=== PATIENT | female | born 1980 | race Caucasian/White ===

== ENCOUNTER 2021-08-26 12:30 | Outpatient (RCR) | payer BC, SELFPAY | END 2021-08-30 11:33 | disposition home or self-care (01) | PROVIDERS: Visit Provider Family Medicine | DX: M77.12 Lateral epicondylitis, left elbow (principal); Z51.89 Encounter for other specified aftercare | CPT/HCPCS: 97033; 97035; 97140 ==

== ENCOUNTER 2022-07-18 07:14 | Outpatient (CLI) | payer BC, SELFPAY | END 2022-07-18 07:15 | disposition home or self-care (01) | LOC: INJ CL 07:16 | PROVIDERS: PCP Physician Assistant Medical; Visit Provider Family Medicine | DX: M54.16 Radiculopathy, lumbar region (principal); M51.36 Other intervertebral disc degeneration, lumbar region | CPT/HCPCS: 62323; J0702; Q9966 ==

== ENCOUNTER 2023-08-19 03:42 | Emergency (ER) | payer OTHER, SELFPAY ==
[2023-08-19 03:49] VITALS: BP 128/90; PULSE 92; RESP 18; TEMP 36.6; O2SAT 97; BMI 31.8
--- NOTE | 2023-08-19 03:56 | ED_ITS ---
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 Patient had no acute injuries but does feel like the pain is worse than normal with the pain in her low back with radiation on the left leg. She has no bowel or bladder sy mptoms no fevers no chills. She has been taking leftover Percocet home with no affect. Patient does have a clark driver with her tonight. She is otherwise uninjured and has no other complaints. Related Data Home Medications ?Medication ?Instructions ?Recorded ?Confirmed No Known Home Medications 08/19/23 08/19/23 Allergies Allergy/AdvReac Type Severity Reaction Status Date / Time bupropion Allergy Verified 07/18/22 07:48 naproxen Allergy Verified 07/18/22 07:48 Penicillins Allergy Verified 07/18/22 07:48 tramadol Allergy Verified 07/18/22 07:48 wheat Allergy Verified 07/18/22 07:48 PURELL HAND MANAGER PRINTING Allergy Uncoded 07/18/22 07:48 Review of Systems Status of ROS: Reports: 10 or more systems reviewed and unremarkable except as noted in History and below Exam Narrative: Exam Narrative: EXAM GENERAL: Patient appears comfortable and well. EYES: No scleral icterus. LYMPH: No supraclavicular or cervical lymphadenopathy. SKIN: Visible skin seen during exam normal or with benign process only. EXT: No dependent lower extremity pedal edema. HEART: Regular rate and rhythm with no murmurs, rubs, or gallops. LUNGS: Clear to auscultation bilaterally with no crackles or wheezes. ABD: Soft, non tender, non distended. PSYCH: Good eye contact, speech is not pressured. Neurologic cranial nerves 2-12 grossly intact no focal defects. Const: Vital Signs, click to edit/add: Vital Signs - 24 hr 08/19/23 03:49 Temperature 97.8 F Pulse Rate [Pulse Oximeter] 92 Respiratory Rate 18 Blood Pressure [Ri ght Upper Arm] 128/90 H Pulse Oximetry 97 Oxygen Delivery Me thod Room Air Course Course ED Course: Patient is examined. Vital Signs Vital signs: Initial Vital Signs Temperature 97.8 F 08/19/23 03:49 Temperature Source Temporal Artery Scan 08/19/23 03:49 Pulse Rate 92 08/19/23 03:49 Respiratory Rate 18 08/19/23 03:49 Blood Pressure 128/90 H 08/19/23 03:49 Blood Pressure Mean 102 08/19/23 03:49 Blood Pressure Position Sitting 08/19/23 03:49 Pulse Oximetry 97 08/19/23 03:49 Oxygen Delivery Method Room Air 08/19/23 03:49 Vital Signs Temperature 97.8 F 08/19/23 03:49 Pulse Rate 92 08/19/23 03:49 Respiratory Rate 18 08/19/23 03:49 Blood Pressure 128/90 H 08/19/23 03:49 Pulse Oximetry 97 08/19/23 03:49 Oxygen Delivery Method Room Air 08/19/23 03:49 Temperature 97.8 F 08/19/23 03:49 Pulse Rate 92 08/19/23 03:49 Respiratory Rate 18 08/19/23 03:49 Blood Pressure 128/90 H 08/19/23 03:49 Pulse Oximetry 97 08/19/23 03:49 Oxygen Delivery Method Room Air 08/19/23 03:49 MDM - Back Pain/Injury MDM Narrative Medical decision making narrative: Patient is a 42-year-old woman who has acute on chronic back pain. She has a fairly extensive history and actually has Percocet at home. She has no bowel or bladder symptoms or red flag symptoms at all. She has a normal exam and reasonable vital signs. I did given her history elect to treat with short course of prednisone as well as limited number of 12 oxycodone 1-2 every 4-6 as needed. I also give her 30 mg of IM Toradol and she does have appointment with physical medicine this coming week. Differential diagnosis includes but not limited to diskitis nerve impingement spinal stenosis disc herniation sprain or strain. Discharge Plan Discharge Prescriptions: No Action No Known Home Medications Follow Up/Referrals: Leola Pablo PA-C [Primary Care Provider] -
--- OUTSIDE RECORDS SUMMARY | 2023-08-19 04:00 | XMS_ITS | Clinical Summary ---
Author Organization [facility] Address [place], [place] [address] Care Team Providers Care Cafeteria Cashier Name Role Phone GastonsixtoConcha MD Unavailable [phone] Leola Pablo Primary Care Provider Allergies Active Allergy Reactions Criticality Noted Date Comments Cephalexin Other - Describe In Comment Field 12/20/2022 Face, hand swelling Unlisted Allergen (Include Detail In Comments) Rash,Other - Describe In Comment Field 02/21/2021 purell hand home health occupational therapist Garcia skin Penicillins Dizziness 06/27/2005 IV Form and oral augmentin Tramadol Anxiety 01/27/2014 Jittery, agitated, aggressive, hot Wheat Flour Hives 10/25/2006 Bupropion Hives 06/27/2005 Medications Medication Sig Dispensed Refills Start Date End Date Status traZODone (DESYREL) 50 mg tabletIndications:In somnia, unspecified type Take 1 tablet by mouth at bedtime. 90 tablet 3 03/29/2019 Active ondansetron (ZOFRAN ODT) 4 mg disintegrating tabletIndications:Na usea Place 1 Tablet (4 mg) on the tongue every 8 hours if needed for Nausea/Vomiting. 30 tablet. 12/28/2020 Active cyclobenzaprine (FLEXERIL) 10 mg tabletIndications:Tr igger point Take 1 Tablet (10 mg) by mouth 2 times daily if needed for Muscle Spasm. 30 Tablet 06/28/2022 Active cxcdwkgt-qfhvnloxc-t ydrocortisone (CORTISPORIN OTIC) otic suspensionIndication s:Otitis externa, unspecified chronicity, unspecified laterality, unspecified type Place 3 Drops into both ears three times daily. 10 mL 06/28/2022 Active oxyCODONE-acetaminop hen (Percocet) 5-325 mg per tabletIndications:Ruth mbar disc disease,Lumbar radiculopathy Take 1 Tablet by mouth every 6 hours if needed for Pain. Max acetaminophen dose: 4000mg in 24 hrs. 18 Tablet 07/06/2022 Active mupirocin (Bactroban) ointmentIndications: Impetigo Apply topically to affected area(s) 3 times daily for 5 days. 22 g 12/19/2022 Active hydroCHLOROthiazide 25 mg tabletIndications:Bi lateral edema of lower extremity TAKE ONE OR TWO TABLETS BY MOUTH DAILY 180 Tablet 07/17/2023 Active Active Problems Problem Noted Date Diagnosed Date H/O total hysterectomy 06/15/2021 Pain medication agreement 12/21/2014 Spondylolisthesis of lumbosacral region 05/29/19 15 DDD (degenerative disc disease), lumbar 05/29/19 15 Lumbar foraminal stenosis 05/28/2014 URTICARIA NOS 04/30/2000 DISORDER, TOBACCO USE 11/29/1999 LUMBAGO 07/19/1999 Resolved Problems Problem Noted Date Diagnosed Date Resolved Date Peroneal tenosynovitis 09/20/201201/28 Normal delivery 06/07/2007 01/28/2014 Supervision of other normal 05/03/2007 06/07/2007 Placenta previa without hemo rrhage, antepartum 02/04/2007 06/07/2007 Obesity, unspecified 10/25/2006 008 EXAMINATION, ROUTINE MEDICAL 11/29/1999 10/25/2006 ABSENCE, MENSTRUATION 11/29/19992006 Encounters Date Type Department Care Team Description 07/16/2023 Refill [facility] [address] [place] [address] Leola Pablo PA Refill Request (Hydrochlorothiazide) from Last 3 Months Immunizations Name Administration Dates Next Due HepA-HepB (Twinrix) 08/22/2011,06/23/2011 Hepatitis B (Adult) 09/10/2012 Influenza, IIV3 (Age >=3 years) 12/17/2013,11/25 Influenza, IIV4 11/15/2020, 0,11/14/2017,12/07/2016, 11/22/2015,11/25/2014 MMR 11/21/2013,10/22/2013 Td (Age >=7 Years) 03/11/2004 Tdap 08/22/2011 Family History Medical History Relation Name Comments Diabetes Mother diet controlled Genetic Other Father - has HT N. ~GF has CAD.~GM, Aunt, and cousin have breast cancer. Heart Disease Sister cardiac arrhyt hmia Relation Name Status Comments Mother Other Sister Social History Tobacco Use Types Packs/Day Years Used Date Smoking Tobacco: Every Day Cigarettes 0.5 15 Smokeless Tobacco: Never Tobacco Cessation:Ready to Q uit: Yes; Counseling Given: Yes Comments:quitting, down to 2-3 per day Alcohol Use Standard Drinks/Week Comments No 0 (1 standard drink = 0.6 oz pur e alcohol) Alcoholic Drinks/day: 0 PHQ-2 Answer Date Recorded PHQ-2 Score 3 04/01/2019 Social Connections Answer Date Recorded Frequency of Communication with Friends and Fami ly 0 12/19/2022 Financial Resource Strain Answer Date R ecorded Difficulty of Paying Living Expenses 3 12/19/2022 Difficulty of Paying Living Expenses Not on file 12/19/2022 Food Insecurity Answer Date Recorded Worried About Running Out of Food in the Last Ye ar 1 12/19/2022 Transportation Needs Answer Date Record ed Lack of Transportation (Medical) 1 12/19/2022 Housing Stability Answer Date Recorded Unable to Pay for Housing in the Last Year 1 12/19/2022 Sex and Gender Information Value Date Recorded Sex Assigned at Not on file Gender Identity Not on file Sexual Orientation Not on file Obstetrics History Para Term AB IAB SAB Ectopic Multiple Livin g Live Births 6 4 4 1 1 4 4 Date Outcome GA Total Labor Labor/2nd/3rd Weight Sex Type Anes PTL Latasha A1 A5 Name Clin Comments:System Genera barbara. Please review and update details. SAB 997 Term 42w 0d Vag Living 002 Term 41w 0d Vag Living 005 Term 40w 0d Vag Living 008 Term 39w 0d Vag Living Last Filed Vital Signs Vital Sign Reading Time Taken Comments Blood Pressure 93/70 12/19/2022 7:39 AM CDT Pulse 92 12/19/2022 7:39 AM CDT Temperature 36.7 ??C (98.1 ??F) 12/19/2022 7:39 AM CD T Respiratory Rate 18 06/08/2007 8:20 AM CDT Oxygen Saturation 99% 12/19/2022 7:39 AM CDT Inhaled Oxygen Concentration - - Weight 100.7 kg (222 lb) 12/19/2022 7:39 AM CDT Height 160 cm (5' 3) 02/21/2021 10:43 AM MONOMER PURIFICATION OPERATOR Body Mass Index 39.33 02/21/2021 10:43 AM MONOMER PURIFICATION OPERATOR Plan of Treatment Health Maintenance Due Date Last Done Comments Pneumococcal series for age 6-64 (1 of 2 - PCV) 1984 Hepatitis C screening for ag e 18-79 1996 Depression screening for age 12+ 04/01/2020 04/01/19 20, 07/21/2016 Tetanus booster 08/21/2021 08/22/2011, 03/11/2004 BMI (ht and wt on same day) for age 18+ 02/21/2022 02/21/2021, 04/25/2019, 04/09/2019, Additional history exists COVID-19 vaccine series ( season) 2022 Influenza for age 9-49 10/21/2023 , 12/18/2019, 11/14/2017, Additional history exists HIV for age 15-65 Completed 08/26/2009, 11/26/2006 Tdap Completed 08/22/2011 Procedures Procedure Name Priority Date/Time Associated Diagnosis Comments ANTI HIV 1/2 Routine 08/26/2009 6:59 PM CDT Supervision of other normal from Last 3 Months or Most Recently Relevant to Health Maintenance Results * HIV (08/26/2009 6:59 PM CDT) ANTI HIV 1/2 Non-reacti ve [facility] Blood specimen (specimen) BLOOD SPECIMEN / Unknown 08/26/2009 6:59 PM CDT 08/26/2009 6:45 PM CDT Móinca López NP SEND OUTS [facility] INTERNAL ZIP [phone] [address] from Last 3 Months or Most Recently Relevant to Health Maintenance Advance Directives * Full Code (Latest Code Status on File) Date Activated Date Inactivated Comments 06/07/2007 4:39 AM 06/08/2007 2:32 PM * Full Code Date Activated Date Inactivated Comments 06/06/2007 9:00 AM 06/07/2007 4:39 AM Care Teams Cafeteria Cashier Relationship Specialty Start Date End Date Leola Pablo PA [address] [place] [id number] PCP - General Physician Hand Packer/Packager 04/01/19 Concha Fermin MD [address] [place] [address] [employer]DLE SCHO[employer] TUTOR Obstetrics and Gynecology 01/02/12
--- OUTSIDE RECORDS SUMMARY | 2023-08-19 04:00 | XMS_ITS | Continuity of Care Document ---
Author Organization [facility] Address [address] [place] [address] Phone Care Team Providers Care Feed Mixer Helper Name Role Phone Dez Orantes MD Unavailable Unavailable Allergies, Adverse Reactions, Alerts Substance Reaction Status Criticality Penicillins Active No Information Medications Medication Instructions Dosage Effective Dates (start - stop) Status Comments EXCEDRIN MIGRAINE (unknown strength) Not Available - Active PERCOCET (unknown strength) Not Available - Active TRAZODONE HCL (unknown strength) Not Available - Active HYDROCHLOROTHIAZIDE (unknown strength) Not Available - Active Procedures Procedure Date Office/Outpatient Visit,[facility] 2015 Advance Directives Directive Yes / No Effective Date File Name No Information Encounters Encounter Description Practice Location Reason(s) For Visit Diagnoses Date Provider Providers Copied on Encounter Office/Outpati ent Visit,[facility] , [address], [place], [place], [id number], [place] tel:[phone] [facility] - Piper Spondylolis thesis, lumbar region Lamberto Larson [facility], [address], [place], [place], [id number], [place]. tel:[phone] Referring Provider: Leola Pablo [facility], [place], [address]. tel:[phone] Family History Family Member Type Diagnosis Age At Onset Problem (finding) Problem (finding) Payers Payer name Insurance type Covered alliance party ID Authoriza tion(s) No Information Social History Type Description Quantity Date Captured Comments Alcohol Use Details Caffeine Use Details Tobacco Use Status Smoking Status Current every day smoker Non-Smoking Tobacco Use Details : No Details Available
cigarett es: Years Used 20 : No Details Available cigarettes: No Details Available Sex Female Vital Signs Date / Time: Height Weight BMI Pulse Rate Blood Pressure Temperature Respiratory Rate Body Surface Area Head Circumference Head Circ. Percentile Wt./Franck. Percentile BMI percentile Pulse Ox Inhaled Ox 9:52 AM 63.50 in 104.326 kg (230.00 lbs) 40.1 0 kg/m eter (2) 76 /min 128/79 mm[Hg] Chief Complaint And Reason For Visit No Information Reason For Referral Reason For Referral No Information History Of Present Illness Encounter Date Complaint History Of Prese nt Illness No Information Functional Status Date Functional Assessmen t No Information Instructions Date Instruction Additional Infor mation No Information Assessments Type Assessment Date assessment Spondylolisthesis, lumbar region Patient Care Teams Name Effective Dates (start - stop) Status Members No Information
--- OUTSIDE RECORDS SUMMARY | 2023-08-19 04:00 | XMS_ITS | Continuity of Care Document ---
Author Organization [facility] Address [address] [place] [address] Phone Care Team Providers Care Fence Post Driver Name Role Phone Dez Orantes MD Unavailable Unavailable Allergies, Adverse Reactions, Alerts Substance Reaction Status Criticality Penicillins Active No Information Medications Medication Instructions Dosage Effective Dates (start - stop) Status Comments HYDROCHLOROTHIAZIDE (unknown strength) Not Available - Active TRAZODONE HCL (unknown strength) Not Available - Active PERCOCET (unknown strength) Not Available - Active EXCEDRIN MIGRAINE (unknown strength) Not Available - Active Procedures Procedure Date Office/Outpatient Visit,[facility] 2015 Advance Directives Directive Yes / No Effective Date File Name No Information Encounters Encounter Description Practice Location Reason(s) For Visit Diagnoses Date Provider Providers Copied on Encounter Office/Outpati ent Visit,[facility], [facility] , [address], [place], [place], [id number], [place] tel:[phone] [facility] - Piper Spondylolis thesis, lumbar region Lamberto Larson [facility], [address], [place], [place], [id number], [place]. tel:[phone] Referring Provider: Leola Pablo [facility], [place], [address]. tel:[phone] Family History Family Member Type Diagnosis Age At Onset Problem (finding) Problem (finding) Payers Payer name Insurance type Covered green party ID Authoriza tion(s) No Information Social [...]
--- OUTSIDE RECORDS SUMMARY | 2023-08-19 04:00 | XMS_ITS | Patient Health Record ---
Author Organization [facility] Address [address] [place] [address] Care Team Providers Care Profiling Machine Set Up Operator Tool Name Role Phone Nikolai Lawton [phone] RESULTS Component Value Reference Range Notes Glucose Reviewed date:11/30/2022 03:16:17 PM Interpretation: Performing Lab: Notes/Report: Glucose 98 70 - 99 mg/dL Lipid Panel Reviewed date:11/30/2022 03:15:51 PM Interpretation: Performing Lab: Notes/Report: Cholesterol, Total 207 <200 - mg/dL HDL Cholesterol 45 LDL Cholesterol Calc 133 <100 - mg/dL Triglycerides 147 <150 - mg/dL nHDLc 163 <130 - mg/dL TC/H 4.6 2.8 - 6.6 VLDL Cholesterol John Hemoglobin A1c Reviewed date:11/30/2022 03:56:23 PM Interpretation: Performing Lab: Notes/Report: A1c Hemoglobin 5.1 4.0 - 7.0 % REASON FOR REFERRAL No Information IMMUNIZATIONS Vaccine Route Administration Date Status Comme nts Influenza quadrivalent (FLUARIX 6mos and older) IM Intramuscular 11/15/2020 Administered Influenza quadrivalent (FLUARIX 6mos and older) IM Intramuscular 11/30/2022 Administered VITAL SIGNS Blood pressure diastolic 90 mm Hg 11/30/2022 Blood pressure systolic 124 mm Hg 11/30/2022 Encounters Encounter Location Date Provider Diagnosis [address] [address] 11/30/2022 Nikolai Lawton Encounter for examination for insurance purposes Z02.6 and Need for influenza vaccination Z23 ASSESSMENTS Encounter Date Diagnosis Assessment Notes Treatment Notes Treatment Clinical Notes 11/30/2022 Encounter for examination for insurance purposes (ICD-10 - Z02.6) 11/30/2022 Need for influenza vaccination (ICD-10 - Z23) PLAN OF TREATMENT No Information Insurance Providers Payer Name Payer Address Payer Phone Subscriber Number Group Number Insured Name Patient Relationship to Insured Coverage Start Date Coverage End Date BCBS BlueLink [address] [address] [place]ace [address] [id number] Harini Nunn Self - patient is the insured
[2023-08-19] MEDS: KETOROLAC 30 MG/ML inj IM (04:09)
[2023-08-19] MEDS: ONDANSETRON ODT 4 MG TAB PO (04:18)
[2023-08-19 04:47] VITALS: BP 131/91; PULSE 99; RESP 22; O2SAT 100
== END 2023-08-19 05:30 | disposition home or self-care (01) ==
PROVIDERS: Emergency Provider Internal Medicine; PCP Physician Assistant Medical
DX: M54.9 Dorsalgia, unspecified (principal); G89.29 Other chronic pain
CPT/HCPCS: 96372; 99283; 99284; A9270; J1885

== ENCOUNTER 2023-12-14 08:19 | Outpatient (CLI) | payer BC, SELFPAY ==
--- OUTSIDE RECORDS SUMMARY | 2023-12-14 08:21 | XMS_ITS | Continuity of Care Document ---
Author Organization [facility] Address [address] [place] [address] Phone Care Team Providers Care Crop And Soil Technician Name Role Phone Dez Orantes MD Unavailable [...] Available - Active Procedures Procedure Date Office/Outpatient Visit,[facility] 2015 Advance Directives Directive Yes / No Effective Date File Name No Information Encounters Encounter Description Practice Location Reason(s) For Visit Diagnoses Date Provider Providers Copied on Encounter Office/Outpati ent Visit,[facility], [facility] , [address], [place], [place], [id number], [place] tel:[phone] [facility] - Piper Spondylolis thesis, lumbar region Lamberto Larson [facility], [address], [place], [place], [id number], [place]. tel:[phone] Referring Provider: Leola Pablo [facility], [place], [address]. tel:[phone] Family History Family Member Type Diagnosis Age [...]
--- OUTSIDE RECORDS SUMMARY | 2023-12-14 08:22 | XMS_ITS | Patient Health Record ---
Author Organization [facility] Address [address] [place] [address] Support Name Relationship Address Phone Harini Nunn Guarantor Unknown [phone] REASON FOR REFERRAL No Information IMMUNIZATIONS Vaccine Route Administration Date Status Comme nts Influenza quadrivalent (FLUARIX 6mos and older) IM Intramuscular 11/15/2020 Administered Influenza quadrivalent (FLUARIX 6mos and older) IM Intramuscular 11/30/2022 Administered PLAN OF TREATMENT No Information Insurance Providers Payer Name Payer Address Payer Phone Subscriber Number Group Number Insured Name Patient Relationship to Insured Coverage Start Date Coverage End Date BCBS BlueLink [address] [address] [place] [address] [id number] Harini Nunn Self - patient is the insured
--- OUTSIDE RECORDS SUMMARY | 2023-12-14 08:22 | XMS_ITS | Clinical Summary ---
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 30 tablet. 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 30 Tablet 1 11/05/2023 Active Active Problems Problem Noted Date Diagnosed [...] Encounters Date Type Department Care Team Description 12/13/2023 Travel 11/12/2023 11:20 AM CDT Office Visit [facility] [address] [place] [address] Gianluca Lemos MD Musculoskeletal Problem (Follow up back pain epidural steroid injection last on 07/18/22.) 11/12/2023 Travel 11/05/2023 7:50 AM CDT Office Visit [facility] [address] [place] [address] Leola Pablo PA Shoulder Pain/problem (Ongoing L shoulder pain - been years, will randomly act up on her, you had done trigger point inj before) 11/05/2023 Telephone [facility] [address] [place] [address] Gianluca Lemos MD Back Pain 11/05/2023 Travel from Last 3 Months Immunizations Name Administration [...] file 12/19/2022 Food Insecurity Answer Date Recorded Do you worry your food will run out before you are able to buy more? 1 12/19/2022 Transportation Needs Answer Date Record ed Lack of Transportation (Medical) 1 12/19/2022 Housing Stability Answer Date Recorded What is your housing situation today? 1 12/19/2022 Sex and Gender Information Value [...] Sign Reading Time Taken Comments Blood Pressure 101/70 11/12/2023 11:25 AM CDT Pulse 83 11/12/2023 11:25 AM CDT Temperature 36.7 ??C (98.1 ??F) 11/12/2023 11:25 AM C DT Respiratory Rate 18 06/08/2007 8:20 AM CDT Oxygen Saturation 100% 11/12/2023 11:25 AM CDT Inhaled Oxygen Concentration - - Weight 88.9 kg (196 lb) 11/05/2023 7:52 AM CDT Height 160 cm (5' 3) 02/21/2021 10:43 AM TECHNICAL SUPPORT ENGINEER Body Mass Index 34.72 02/21/2021 10:43 AM TECHNICAL SUPPORT ENGINEER Plan of Treatment Upcoming Encounters Date Type Department Care Team (Late st Contact Info) Description 12/14/2023 9:00 AM CDT Office Visit [facility] at [facility] [address] [place] [phone] Gianluca Lemos MD [address] [place] [address] Arrived 01/28/2024 8:40 AM TECHNICAL SUPPORT ENGINEER Office Visit [facility] [address] [place] [address] Gianluca Lemos MD [address] [place] [address] Health Maintenance Due Date Last Done Comments Pneumococcal series for age 6-64 (1 of 2 - PCV) 1984 Hepatitis C screening for ag e 18-79 1996 Depression screening for age 12+ 04/01/2020 04/01/19 20, 07/21/2016 Tetanus booster 08/21/2021 08/22/2011, 03/11/2004 BMI (ht and wt on same day) for age 18+ 02/21/2022 02/21/2021, 04/25/2019, 04/09/2019, Additional history exists Colonoscopy through age 75 09/22/2023 Lipids for age 45-75 09/22/2023 12/30/2003 Mammogram for age 45-75 09/22/2023 COVID-19 vaccine series ( season) 2023 03/10/2021, 03/24/2020 Influenza for age 9-49 10/21/2023 , 12/18/2019, 11/14/2017, Additional history exists HIV for age 15-65 Completed 08/26/2009, 11/26/2006 Tdap Completed 08/22/2011 Procedures Procedure Name Priority Date/Time Associated Diagnosis Comments AMB EPIDURAL STEROID INJECTION Routine 12/14/2023 8:00 AM CDT Lumbar disc disease Lumbar radiculopathy Spondylolisthesis of lumbosacral region ANTI HIV 1/2 Routine 08/26/2009 6:59 PM CDT Supervision of other normal LIPID PANEL Timed 12/30/2003 12:10 PM TECHNICAL SUPPORT ENGINEER from Last 3 Months or Most Recently Relevant to Health Maintenance Results * HIV (08/26/2009 6:59 PM CDT) ANTI HIV 1/2 Non-reacti ve [facility] Blood specimen (specimen) BLOOD SPECIMEN / Unknown 08/26/2009 6:59 PM CDT 08/26/2009 6:45 PM CDT Mónica López LEAD HANDLER SEND OUTS [facility] [place] ZIP [address] [address] * (ABNORMAL) LIPID PANEL (12/30/2003 12:10 PM TECHNICAL SUPPORT ENGINEER) CHOLESTEROL,TOTAL 208(H) 110 - 199 mg/dL [facility] TRIGLYCERIDES 122 40 - 149 mg/dL [facility] HDL CHOLESTEROL 38(L) 41 - 95 mg/dL [facility] CHOL/HDL RATIO 5.47(H) <4.51 [facility] LDL CHOLESTEROL 146(H) 60 - 130 mg/dL [facility] PATIENT STATUS Fasting [facility] 12/30/2003 12:1 0 PM TECHNICAL SUPPORT ENGINEER 12/30/2003 7:27 PM TECHNICAL SUPPORT ENGINEER Danna Salcido MD CHEMISTRY [facility] INTERNAL ZIP [id number] [address] from Last 3 Months or Most Recently Relevant to Health Maintenance Advance Directives * Full Code (Latest Code Status on File) Date Activated Date Inactivated Comments 06/07/2007 4:39 AM 06/08/2007 2:32 PM * Full Code Date Activated Date Inactivated Comments 06/06/2007 9:00 AM 06/07/2007 4:39 AM Care Teams Assembly Line Robot Operator Relationship Specialty Start Date End Date Leola Pablo PA [facility] [place] [place] [address] PCP - General Physician Oil Dipper 04/01/19 Concha Fermin MD [address] [place] [address] LICENSING SPECIALIST Obstetrics and Gynecology 01/02/12
== END 2023-12-14 08:20 | disposition home or self-care (01) ==
LOC: INJ CL 08:20
PROVIDERS: PCP Physician Assistant Medical; Visit Provider Family Medicine
DX: M54.16 Radiculopathy, lumbar region (principal); M51.369 Other intervertebral disc degeneration, lumbar region without mention of lumbar back pain or lower extremity pain
CPT/HCPCS: 62323; J0702; Q9966

== ENCOUNTER 2025-01-27 14:44 | Emergency (ER) | payer BC, SELFPAY ==
[2025-01-27] VITALS (19 sets, daily range): BP systolic 98–124; BP diastolic 52–84; PULSE 68–94; RESP 16–20; TEMP 37.5; O2SAT 95–100
--- NOTE | 2025-01-27 16:00 | CRLHL7_ITS ---
For Patients: As a result of the Century Cures Act, medical imaging exams and procedure reports are released immediately into your electronic medical record. You may view this report before your referring provider. If you have questions, please contact your health care provider. INDICATION: Head trauma. TECHNIQUE: CT head without contrast. COMPARISON: None. FINDINGS: CSF spaces: Within normal limits for age. Brain parenchyma and extra-axial spaces: The coleman-white differentiation is normal. No sign of mass, hemorrhage, or midline shift. No extra-axial fluid collection. Skull base and calvarium: The visualized paranasal sinuses and mastoid air cells demonstrate no acute or significant findings. The visualized orbits are grossly unremarkable. No skull fractures. IMPRESSION: No acute intracranial abnormality on this noncontrast study. Please note that all CT scans at this facility use dose modulation, iterative reconstruction, and/or weight-based dosing when appropriate to reduce radiation dose to as low as reasonably achievable. Dictated by Michael Courtney MD @ 01/27/2025 4:20:19 PM (Electronically Signed)
--- NOTE | 2025-01-27 16:00 | CRLHL7_ITS ---
For Patients: As a result of the Cures Act, medical imaging exams and procedure reports are released immediately into your electronic medical record. You may view this report before your referring provider. If you have questions, please contact your health care provider. INDICATION: Facial injury. TECHNIQUE: CT maxillofacial without contrast. COMPARISON: None. FINDINGS: Facial bones: No fractures or bone lesions. Specifically the nasal bones, temporomandibular joints, maxilla and mandible appear intact. Orbits and globes: Unremarkable. Globes are intact. No sign of intraorbital hemorrhage or emphysema. Sinuses: Mild left maxillary sinus mucoperiosteal thickening. Otherwise, no acute or significant findings. Soft tissues: Left cheek soft tissue edema. IMPRESSION: Left cheek soft tissue edema. No acute maxillofacial fractures. Please note that all CT scans at this facility use dose modulation, iterative reconstruction, and/or weight-based dosing when appropriate to reduce radiation dose to as low as reasonably achievable. Dictated by Michael Courtney MD @ 01/27/2025 4:24:07 PM (Electronically Signed)
--- NOTE | 2025-01-27 16:18 | ED.GENADULT ---
HPI - General Adult General Chief complaint: Fall/Minor Trauma Stated complaint: Fainted and hit face @10:30 am Time Seen by Provider: 01/27/25 16:00 History of Present Illness HPI narrative: This is a pleasant 44-year-old female presenting to the ER today by private car for evaluation of head and facial injuries after a syncopal event. Of note, during the triage process nurses did activate a trauma team activation. 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 ?She got up early this morning after her son called her. ?She has a history that sometimes when she gets up to abruptly out of bed she gets lightheaded and orthostatic but has never fainted before. ?She got up out of bed this morning and within about a few seconds she was feeling dizzy and lightheaded. ?She did not have any palpitations, chest pain, headache, or any other antecedent symptoms. ?She fell to the floor. ?She is not exactly sure what happened but she woke up on the floor couple of minutes later. ?Ever since then she has had a frontal headache and also pain in her left cheek. ?She went back to bed and when she woke up later she was having increasing pain and swelling in her left cheek. ?She actually thought she might have a dental infection so she went to her dentist later this morning and was cleared by her dentist and referred to the ER. She took some Excedrin for her headache and it is now very mild. ?She has not wanted further medications for. ?Her vision is normal. ?She is not nauseous or vomiting. ?No associated neck pain. ?No numbness or weakness in her arms or legs. ?She is not anticoagulated. ?No other injury from the fall. ?No chest pain. ?No rib pain. ?No back pain. ?No pain in her arms or legs. She is having pain with swelling and bruising on her left cheek and pain with opening and closing her mouth on that left side. ?Also a frontal headache. Related Data Home Medications ?Medication ?Instructions ?Recorded ?Confirmed No Known Home Medications 08/19/23 01/27/25 Allergies Allergy/AdvReac Type Severity Reaction Status Date / Time bupropion Allergy Verified 01/27/25 15:44 naproxen Allergy Verified 01/27/25 15:44 Penicillins Allergy Verified 01/27/25 15:44 tramadol Allergy Verified 01/27/25 15:44 wheat Allergy Verified 01/27/25 15:44 ketorolac (From Toradol) AdvReac Verified 01/27/25 15:44 PURELL HAND FINE [employer]S MODEL Allergy Uncoded 07/18/22 07:48 [facility] Social History Smoking Status: Current every day smoker Non-prescribed substance use: denies use Exam Narrative: Exam Narrative: Constitutional: Appears well-developed and well-nourished. Alert. Conversant. Non toxic. HENT: Head: No depressed skull fracture, Raccoon Eyes, Rider's sign, or hemotympanum. Face normal. TMs normal. She does have ecchymosis and swelling over the left cheek and zygomatic arch. No obvious bony deformity or crepitus. No exophthalmos or enophthalmos. No dental malocclusion. No dental fractures. No intraoral bleeding. Tongue normal. Nose: Nose normal. No epistaxis or signs of trauma. Mouth/Throat: Oral mucosa is clear and moist. no trismus. Pharynx normal. Tonsils symmetric. No tonsillar enlargement, erythema, or exudate. Eyes: Conjunctivae normal. EOM normal. Pupils equal, round, and reactive to light. No scleral icterus. Neck: Normal range of motion. Neck supple. No tracheal deviation present. No posterior midline tenderness. Cardiovascular: Normal rate, regular rhythm. No gallop. No friction rub. No murmur heard. Symmetric radial artery pulses Pulmonary/Chest: Effort normal. No stridor. No respiratory distress. No wheezes. No rales. No rhonchi . No tenderness. Abdominal: Soft. Bowel sounds normal. No distension. No mass. No tenderness. No rebound. No guarding. Musculoskeletal: No rib cage tenderness. Pelvis is stable. No T or L-spine tenderness. RUE: Normal range of motion. No tenderness. No deformity LUE: Normal range of motion. No tenderness. No deformity RLE: Normal range of motion. No edema. No tenderness. No deformity LLE: Normal range of motion. No edema. No tenderness. No deformity Neurological: Constitutional: Appears well-developed and well-nourished. Alert. Conversant. Non toxic. HENT: Head: Atraumatic. Nose: Nose normal. Mouth/Throat: Oral mucosa is clear and moist. no trismus. Pharynx normal. Tonsils symmetric. No tonsillar enlargement, erythema, or exudate. Eyes: Conjunctivae normal. EOM normal. Pupils equal, round, and reactive to light. No scleral icterus. Neck: Normal range of motion. Neck supple. No tracheal deviation present. Cardiovascular: Normal rate, regular rhythm. No gallop. No friction rub. No murmur heard. Symmetric radial artery pulses Pulmonary/Chest: Effort normal. No stridor. No respiratory distress. No wheezes. No rales. No rhonchi . No tenderness. Abdominal: Soft. Bowel sounds normal. No distension. No mass. No tenderness. No rebound. No guarding. Musculoskeletal: RUE: Normal range of motion. No tenderness. No deformity LUE: Normal range of motion. No tenderness. No deformity RLE: Normal range of motion. No edema. No tenderness. No deformity LLE: Normal range of motion. No edema. No tenderness. No deformity Lymph: No cervical adenopathy. Neurological: Alert and oriented to person, place, and time. Normal strength. CN II-VII intact. No sensory deficit. GCS eye subscore is 4. GCS verbal subscore is 5. GCS motor subscore is 6. Normal coordination Skin: Skin is warm and dry. No rash noted. No pallor. Normal capillary refill. Psychiatric: Normal mood. Normal affect. She politely declines any medication for headache. She says she took Excedrin and it is already getting quite a bit better. Const: Vital Signs, click to edit/add: Vital Signs - 24 hr 01/27/25 15:37 01/27/25 16:20 01/27/25 16:21 Temperature 99.5 F Pulse Rate 78 79 Pulse Rate [Right Pulse Oximeter] 94 Respiratory Rate 18 20 Blood Pressure 109/84 Blood Pressure [Le ft Upper Arm] 124/81 Pulse Oximetry 100 99 100 Oxygen Delivery Me thod Room Air 01/27/25 16:22 01/27/25 16:30 01/27/25 16:32 Temperature Pulse Rate 77 84 77 Pulse Rate [Right Pulse Oximeter] Respiratory Rate Blood Pressure 101/61 Blood Pressure [Le ft Upper Arm] Pulse Oximetry 100 99 100 Oxygen Delivery Me thod 01/27/25 16:42 01/27/25 16:45 01/27/25 16:52 Temperature Pulse Rate 72 72 71 Pulse Rate [Right Pulse Oximeter] Respiratory Rate 17 Blood Pressure 109/60 111/64 Blood Pressure [Le ft Upper Arm] Pulse Oximetry 100 100 99 Oxygen Delivery Me thod 01/27/25 17:00 01/27/25 17:01 01/27/25 17:12 Temperature Pulse Rate 72 72 70 Pulse Rate [Right Pulse Oximeter] Respiratory Rate 16 16 Blood Pressure 110/61 106/68 Blood Pressure [Le ft Upper Arm] Pulse Oximetry 95 100 100 Oxygen Delivery Me thod 01/27/25 17:15 01/27/25 17:21 01/27/25 17:30 Temperature Pulse Rate 70 69 68 Pulse Rate [Right Pulse Oximeter] Respiratory Rate 17 16 Blood Pressure 107/69 Blood Pressure [Le ft Upper Arm] Pulse Oximetry 100 99 100 Oxygen Delivery Me thod 01/27/25 17:32 01/27/25 17:42 01/27/25 17:45 Temperature Pulse Rate 68 70 69 Pulse Rate [Right Pulse Oximeter] Respiratory Rate 18 18 16 Blood Pressure 105/60 98/52 L Blood Pressure [Le ft Upper Arm] Pulse Oximetry 100 100 99 Oxygen Delivery Me thod 01/27/25 17:52 Temperature Pulse Rate 69 Pulse Rate [Right Pulse Oximeter] Respiratory Rate Blood Pressure 105/76 Blood Pressure [Le ft Upper Arm] Pulse Oximetry 100 Oxygen Delivery Me thod Course Vital Signs Vital signs: Initial Vital Signs Temperature 99.5 F 01/27/25 15:37 Temperature Source Temporal Artery Scan 01/27/25 15:37 Pulse Rate 94 01/27/25 15:37 Pulse Rhythm Regular 01/27/25 15:37 Pulse Strength 3+ Normal 01/27/25 15:37 Respiratory Rate 18 01/27/25 15:37 Blood Pressure 124/81 01/27/25 15:37 Blood Pressure Mean 95 01/27/25 15:37 Blood Pressure Position Sitting 01/27/25 15:37 Pulse Oximetry 100 01/27/25 15:37 Oxygen Delivery Method Room Air 01/27/25 15:37 Vital Signs Temperature 99.5 F 01/27/25 15:37 Pulse Rate 94 01/27/25 15:37 Respiratory Rate 18 01/27/25 15:37 Blood Pressure 124/81 01/27/25 15:37 Pulse Oximetry 100 01/27/25 15:37 Oxygen Delivery Method Room Air 01/27/25 15:37 Temperature 99.5 F 01/27/25 15:37 Pulse Rate 69 01/27/25 17:52 Respiratory Rate 16 01/27/25 17:45 Blood Pressure 105/76 01/27/25 17:52 Pulse Oximetry 100 01/27/25 17:52 Oxygen Delivery Method Room Air 01/27/25 15:37 Medical Decision Making MDM Narrative Medical decision making narrative: This patient presents for evaluation of a syncopal event that occurred this morning if she abruptly jumped out of bed and shorted within a couple of seconds of standing up. She has a history of getting lightheaded when getting out of bed too quickly. Clinical history would suggest that this was probably an orthostatic hypotensive event.. A broad differential was considered. History provided suggests a benign cause of syncope. No murmurs . Initial ECG shows normal sinus rhythm and no dysrhythmogenic abnormality such as WPW, prolonged QT, Brugada syndrome, and no ischemia. No symptoms/findings concerning for cardiac ischemia or ACS . No headache or other neurologic symptoms to suggest subarachnoid , stroke . No reported seizure-like activity or postictal phase. ekg monitor while the patient here in the ER showed no dysrhythmia or ectopy. A broad differential diagnosis was considered including SVT, Atrial fibrillation, ventricular arrhythmia, thyroid disease, acute electrolyte abnormality, drugs/medications, medication side effect, anemia, heart disease, PE, among others. The workup and exam here in ED shows low risk for dangerous cause of the patient's syncope, and no risks factors to warrant admission. She did hit her head when she fainted and has bruising on her left cheek with left facial pain. Head CT is obtained is fortunately negative for any acute intracranial injury or skull fracture. Maxillofacial CT is also negative for any fracture. She is not having any neck pain suggest C-spine injury and no other evidence for any acute traumatic injury on her clinical exam. She is hemodynamically stable. Clinical judgement suggests that supportive outpatient management is indicated. At this point I suspect that her headache is probably due to concussion. Discussed concussion, post concussive syndrome, 2nd impact syndrome. Need for follow-up and precautions for return to the ER reviewed. Recommend follow up with PCP within 5-7 days if not completely improved.. Questions answered and return precautions given Lab Data Labs: Lab Results 01/27/25 Range/Units 16:26 WBC 8.25 (4.50-11.00) K/uL RBC 4.45 (4.00-5.20) m/uL Hgb 14.3 (12.0-16.0) gm/dL Hct 41.9 (33.0-51.0) % MCV 94 (80-100) fL MCH 32 (26-34) pg MCHC 34 (32-36) gm/dL RDW Coeff of Tayo 13.0 (11.5-15.5) % Plt Count 171 (140-440) K/uL Neut % (Auto) 71.3 (42.0-72.0) % Lymph % (Auto) 21.0 (20-44) % [place] % (Auto) 6.2 (0.0-11.0) % Eos % (Auto) 1.1 (0.0-7.0) % Baso % (Auto) 0.2 (0.0-3.0) % Neut # (Auto) 5.88 (1.7-7.0) K/uL Lymph # (Auto) 1.73 (0.90-2.90) K/uL [place] # (Auto) 0.50 (0.00-0.90) K/UL Eos # (Auto) 0.09 (0.00-0.50) K/uL Baso # (Auto) 0.02 (0.00-0.30) K/uL Abs Immat Gran (auto) 0.02 (0.00-0.30) K/uL Imm/Tot Granulo (auto) 0.2 % Sodium 135 (135-149) mmol/L Potassium 3.1 L (3.6-5.1) mmol/L Chloride 98 (96-114) mmol/L Carbon Dioxide 24 (20-32) mmol/L Anion Gap 13 (7-15) mEq/L BUN 17 (5-24) mg/dL Creatinine 0.8 (0.5-1.5) mg/dL Estimated GFR 92 ml/min Glucose 95 (60-115) mg/dL Calcium 9.4 (8.4-10.6) mg/dL Imaging Data CT Facial Bones: Attestation: I have reviewed the pertinent imaging results. Radiologist's impression: IMPRESSION: Left cheek soft tissue edema. No acute maxillofacial fractures CT scan - head: Attestation: I have reviewed the pertinent imaging results. Radiologist's impression: IMPRESSION: No acute intracranial abnormality on this noncontrast study. ECG Data Attestation: I personally reviewed and interpreted this ECG as follows: Interpretation: Normal sinus rhythm Rate 74 TX interval 144 Normal QRS axis. No pathologic Q-waves. No ST segment elevation or depression QTC 374, QTC 415 Discharge Plan Discharge Clinical Impression: Contusion of face, Concussion, Syncope Patient Disposition: Home, Self-Care Condition: Stable Instructions: Syncope (DC), Concussion (ED), Facial Contusion (ED) Additional Instructions: As we discussed, please come back to the ER right away if you have any problems especially worsening or severe headache, uncontrolled vomiting, seizures, confusion, more episodes of fainting or any chest pain or palpitations, or if you have any other concerns. Please recheck with your regular doctor within 5-7 days if not completely improved. Drink plenty of fluids and rest. It is okay to use Tylenol or ibuprofen if needed for headache. Prescriptions: No Action No Known Home Medications Follow Up/Referrals: Leola Pablo PA-C [Primary Care Provider, Family Practice] Stand Alone Forms: [facility]/School Release, [facility] Info Instructions
[2025-01-27 16:30] LABS: Hematocrit* 41.9 % (33.0-51.0); Hemoglobin* 14.3 gm/dL (12.0-16.0); Immature Granulocytes Abs Auto 0.02 K/uL (0.00-0.30); Immature Granulocytes Pct Auto 0.2 %; Lymphocytes Absolute Auto 1.73 K/uL (0.90-2.90); Mean Corpuscular HGB Conc 34 gm/dL (32-36); Mean Corpuscular Hemoglobin 32 pg (26-34); Mean Corpuscular Volume 94 fL (80-100); RDW Coefficient of Variation % 13.0 % (11.5-15.5); Red Blood Count* 4.45 m/uL (4.00-5.20); White Blood Count* 8.25 K/uL (4.50-11.00)
[2025-01-27 16:40] LABS: Slide Review Reflex No
[2025-01-27 16:43] LABS: Chloride* 98 mmol/L (96-114); Potassium* 3.1 mmol/L (3.6-5.1); Sodium* 135 mmol/L (135-149)
--- OUTSIDE RECORDS SUMMARY | 2025-01-27 16:45 | XMS_ITS | Clinical Summary ---
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 10 mL 06/28/2022ctive oxyCODONE-acetaminophen (Percocet) 5-325 mg per tablet Indications:Lumbar disc disease,Lumbar radiculopathyTake 1 Tablet by mouth every 6 hours if needed for Pain. Max acetaminophen dose: 4000mg in 24 hrs. 18 Tablet 07/06/2022ctive mupirocin (Bactroban) ointment Indications:ImpetigoApply topically to affected area(s) 3 times daily for 5 days. 22 g 12/19/2022ctive cyclobenzaprine (FLEXERIL) 10 mg tablet Indications:Muscle spasm,Musculoskeletal disorder involving upper trapezius muscleTake 1 Tablet (10 mg) by mouth 2 times daily if needed for Muscle Spasm. 30 Tablet 4Active hydroCHLOROthiazide 25 mg tablet Indications:Bilateral edema of lower extremityTAKE ONE OR TWO TABLETS BY MOUTH DAILY 180 Tablet tive traZODone (DESYREL) 50 mg tablet Indications:Insomnia, unspecified typeTake 1 Tablet (50 mg) by mouth at bedtime. 90 Tablet tive ondansetron (ZOFRAN ODT) 4 mg disintegrating tablet Indications:NauseaPlace 1 Tablet (4 mg) on the tongue every 8 hours if needed for Nausea/Vomiting. 30 Tablet tive ciprofloxacin-dexAMETHasone (CIPRODEX) otic suspension Indications:Chronic otitis externa of right ear, unspecified typePlace 4 Drops into right ear two times daily. 7.5 mL 01/20/2025tive hydroCHLOROthiazide 25 mg tablet Indications:Bilateral edema of lower extremityTAKE ONE OR TWO TABLETS BY MOUTH DAILY 180 Tablet Discontinued(Reorder (E-cancel not sent)) traZODone (DESYREL) 50 mg tablet Indications:Insomnia, unspecified typeTake 1 Tablet (50 mg) by mouth at bedtime. 90 Tablet Discontinued(Reorder (E-cancel not sent)) ondansetron (ZOFRAN ODT) 4 mg disintegrating tablet Indications:NauseaPlace 1 Tablet (4 mg) on the tongue every 8 hours if needed for Nausea/Vomiting. 30 Tablet Discontinued(Reorder (E-cancel not sent)) ciprofloxacin-dexAMETHasone (CIPRODEX) otic suspension Indications:Chronic otitis externa of right ear, unspecified typePlace 4 Drops into right ear two times daily. 7.5 mL /03/2024Discontinued Active Problems ProblemNoted DateDiagnosed DateH/O total dharahtbjhhh11/27/2022Pain medication /02/2015 Overview (11/28/2024): Diagnosis Code replaced due to regulatory update Spondylolisthesis of lumbosacral yfslio0705/28/2014DDD (degenerative disc disease), gsissr0705/28/2014Lumbar foraminal egncwikv33/09/2015URTICARIA NOS 04/30/2000DISORDER, TOBACCO USE11/29/19995600NJWMPCK53/30/2000 Resolved Problems ProblemNoted DateDiagnosed DateResolved DatePeroneal cxegehjikppxx99/02/2013 01/28/2014Normal pshbpyac57Supervision of other normal rqpmthozm46/14/Placenta previa without hemorrhage, antepartum Obesity, mlbydbyegbj99EXAMINATION, ROUTINE XVNHWMK51BSENCE, WNJMWOYKAFJX42 Encounters DateTypeDepartmentCare MuruAypwpsrfkhd99/09/2025Nurse Triage [facility] Centralized Nurse Triage Leola Pablo PA Dizzy; Face Nkieco6101/20/2025 10:30 AM CSTOffice Visit [facility] [address] [place] [address] Ame Barth PA Consult (Panniculectomy, Thighplasty and Brachioplasty )01/20/2025Refill [facility] [address] [place] [address] Leola Pablo PA Refill Request (Ciprofloxacin-dexamethasone)01/19/20250082Sgijhv37/20/2025 8:40 AM CSTAncillary Procedure [facility] [address] [place] [address] 01/08/20254379Jducpi43/18/2025 11:10 AM CSTOffice Visit [facility] [address] [place] [address] eLola Pablo PA Medication Management (All meds / labs); Concerns (Discuss extra skin after weight loss); Ear Problem (R ear now healing up)01/06/20250361Mmsekv22/07/2025Travel from Last 3 Months Immunizations ImmunizationAdministration DatesNext DueHepA-HepB (Twinrix)08/22/2011,06/23/2011 Hepatitis B (Adult)09/10/2012Usman IIV3 (Age >=3 years)12/17/2013, 11/25/2012Usman, GFW078/,12/18/2019,11/14/2017,12/07/2016,11/22/2015, 11/25/2014MMR1,10/22/2013Td (Age >=7 Years)03/11/2004Tdap08/22/2011 Family History Medical HistoryRelationNameCommentsCancer-breastMaternal Grandmother Cancer-breastMotherDiabetesMotherdiet controlledGeneticOtherFather - has HTN. ~GF has CAD.~GM, Aunt, and cousin have breast cancer.Heart DiseaseSistercardiac arrhythmiaRelationNameStatusCommentsFatherAliveMaternal GrandmotherMotherAlive OtherSister Social History Tobacco UseTypesPacks/DayYears UsedDateSmoking Tobacco: Every DayCigarettes0.515 Smokeless Tobacco: Never Tobacco Cessation:Ready to Q uit: Yes; Counseling Given: Yes Comments:quitting, down to 2-3 per day Alcohol UseStandard Drinks/WeekCommentsNo0 (1 standard drink = 0.6 oz pure alcohol)Alcoholic Drinks/day: 0PHQ-2AnswerDate RecordedPHQ-2 Aawfc157 Social ConnectionsAnswerDate RecordedDo you often feel lonely or isolated from those around you?Financial Resource StrainAnswerDate Recorded Difficulty of Paying Living Exljejks500/05/2025Difficulty of Paying Living ExpensesNot on file02/24/2024Food InsecurityAnswerDate RecordedDo you worry your food will run out before you are able to buy more?Transportation NeedsAnswerDate RecordedDoes lack of transportation keep you from medical appointments?Does lack of transportation keep you from work, meetings or getting things that you need?Housing StabilityAnswerDate Recorded What is your housing situation today?UtilitiesAnswerDate RecordedDo you have trouble paying for utilities (for example, heat, electricity, water, phone)?CommentsNoSex and Gender InformationValueDate Recorded Sex Assigned at BirthNot on fileLegal HxhZfhjon68/14/2013 5:41 AM CSTGender IdentityNot on fileSexual OrientationNot on fileOccupationIndustryJob Start Date Job End DateDAYCARE PROVIDERNot on fileNot on fileNot on file Obstetrics History GravidaParaTermPretermABIABSABEctopicMultipleLivingLive Pwdlzv6591210VuveFdlnmyx GATotal LaborLabor/2nd/2yvRnxwsiSfuWvzsAnodUPGWutI3T0AjclZlevQlushxzNfoyl Comments:System Generated. Please review and update details.SAB 01/01/19977043Kndv62q8gJyuAjpwdc51/28/6957Rmrc01h6qXkhFdfgiv43/09/2443Tuhw27k5dQkp Qozybf5006/07/20071581Kscz28z7gXvkDezcxo Last Filed Vital Signs Vital SignReadingTime TakenCommentsBlood Inbtovaz544/7201/20/2025 10:29 AM SLAB PULLER Igbwh600301/06/2025 11:13 AM ZMBXhhgcnbqhax12.7 ??C (98.1 ??F)01/28/2024 8:44 AM CSTRespiratory Glfa188706/08/2007 8:20 AM CDTOxygen Eexwujtijg628%01/28/2024 8:44 AM CSTInhaled Oxygen Concentration--Lvnhbv83.7 kg (147 lb)01/20/2025 10:29 AM CXOUsvfvf805 cm (5' 2.99)01/20/2025 10:29 AM CSTBody Mass Index26.0501/20/2025 10:29 AM SLAB PULLER Plan of Treatment DateTypeDepartmentCare Team (Latest Contact Info)Stfyfxakcyi51/17/2025 2:15 PM CSTOrders Only [facility] [address] [place] [address] [place], [place] 05/12/2025 10:00 AM CDTOffice Visit [facility] [address] [facility] [address] [phone] Krzysztof Dutton MD [address] [facility] [address] [place] [address] Health MaintenanceDue DateLast DoneCommentsHepatitis C screening for age 18-79 1996Pneumococcal series for age 6-49 (1 of 2 - PCV)1997Depression screening for age 12+, 07/21/2016Tetanus tlyezwn6108/21/2021 08/22/2011, 03/11/2004Colonoscopy through age 7508OVID-19 vaccine series ( - 2024- season)/, 03/24/2020Influenza Vaccine (#1)/, 12/18/2019, 11/14/2017, Additional history exists Mammogram for age 45-755BMI (ht and wt on same day) for age 18+/03/2024, 01/06/2025, 02/21/2021, Additional history existsLipids for age 45-750//07/2024, 12/30/2003HIV for age 15-65Completed 08/26/2009, 11/26/2006Hepatitis B series for 19+Ynmabunbh32/23/2013, 08/22/2011, 06/23/2011 Procedures Procedure NamePriorityDate/TimeAssociated DiagnosisCommentsXR MAMMO JACE BILAT TRUXNBHhjxbiq39/20/2025 8:55 AM SLAB PULLER Encounter for other screening for malignant neoplasm of breast CBC WITH AUTO NSEGGETHDKVRTmzxqby57/18/2025 11:57 AM SLAB PULLER Cold intolerance CBC WITH AUTO WCCCHKKDBEBMHwkclot46/18/2025 11:57 AM SLAB PULLER Cold intolerance VITAMIN R69Ocxvbcs94/18/2025 11:57 AM SLAB PULLER Cold intolerance ATWYITIRPSgrflxt33/18/2025 11:57 AM SLAB PULLER Bilateral edema of lower extremity COMP METABOLIC WUHJHOrvinnv38/18/2025 11:57 AM SLAB PULLER Bilateral edema of lower extremity LIPID PANEL W REFLEX MEASURED FNLQxzpjss54/06/2025 12:14 PM SLAB PULLER Screening cholesterol level ANTI HIV 3Ydqksnu03/08/2010 6:59 PM CDT Supervision of other normal (HC) from Last 3 Months or Most Recently Relevant to Health Maintenance Results * XR MAMMO JACE BILAT SCREEN (01/08/2025 8:55 AM SLAB PULLER)Anatomical RegionLaterality ModalityBREASTS, Breast Left, Breast RightBilateralMammographySpecimen (Source)Anatomical Location / LateralityCollection Method / VolumeCollection TimeReceived Time Impressions 01/08/2025 2:55 PM SLAB PULLER There is no radiographic evidence for malignancy. Recommend annual mammograms. MAMMOGRAM ASSESSMENT: ??ACR 1 Negative PATIENTS: You will also receive a letter with your examination results in an easy to read format. ??If you have questions about your results, please contact your referring provider. Narrative 01/08/2025 2:55 PM SLAB PULLER For Patients: As a result of the Century Cures Act, medical imaging exams and procedure reports are released immediately into your electronic medical record. You may view this report before your referring provider. If you have questions, please contact your health care provider. XR MAMMO JACE BILAT SCREEN [[id number]] CLINICAL HISTORY: ??This is an asymptomatic 44 y.o. patient. INDICATION FOR EXAM: Mammogram Screening. TECHNIQUE: CC and MLO views were obtained. ??This study was evaluated with the assistance of Computer-Aided Detection. Breast Tomosynthesis was used in interpretation. COMPARISON FILM: This is a baseline study. ? FINDINGS: ??There are scattered areas of fibroglandular density. There are no dominant masses, suspicious micro calcifications or areas of architectural distortion. Authorizing ProviderResult TypeResult StatusBridget Julianna Pablo PAMAMMOFinal Result * CBC WITH AUTO DIFFERENTIAL (01/06/2025 11:57 AM SLAB PULLER)ComponentValueRef Range Test MethodAnalysis TimePerformed AtPathologist SignatureWHITE BLOOD CELL COUNT8.23.8 - 10.8 Thousand/uL01/07/2025 2:06 AM CSTQUEST DIAGNOSTICSRED BLOOD CELL COUNT4.683.80 - 5.10 Million/uL01/07/2025 2:06 AM CSTQUEST DIAGNOSTICS HETBQAMKQE58.311.7 - 15.5 g/dL01/07/2025 2:06 AM CSTQUEST DIAGNOSTICS EZPNMHFZUD27.535.0 - 45.0 %01/07/2025 2:06 AM CSTQUEST OGVRRBQREZLSUX25.980.0 - 100.0 fL01/07/2025 2:06 AM CSTQUEST TLTOILXTQSVVZO02.727.0 - 33.0 pg 01/07/2025 2:06 AM CSTQUEST SMSNQPKNCRTWXQE79.232.0 - 36.0 g/dL01/07/2025 2:06 AM CSTQUEST DIAGNOSTICSComment: For adults, a slight decrease in the calculated MCHC value (in the range of 30 to 32 g/dL) is most likely not clinically significant; however, it should be interpreted with caution in correlation with other red cell parameters and the patient's clinical condition. RDW12.611.0 - 15.0 %01/07/2025 2:06 AM CSTQUEST DIAGNOSTICSPLATELET OZRCM622102 - 400 Thousand/uL01/07/2025 2:06 AM CSTQUEST DIAGNOSTICSMPV9.97.5 - 12.5 fL 01/07/2025 2:06 AM CSTQUEST VKXRLCKBESZGJMOEVPXFFN82.2%01/07/2025 2:06 AM SLAB PULLER [facility] QXKMPJHYZLFUSPTFTVZROV48.3%01/07/2025 2:06 AM CST[facility] DIAGNOSTICS MONOCYTES7.0%01/07/2025 2:06 AM CSTQUEST DIAGNOSTICSEOSINOPHILS4.0%01/07/2025 2:06 AM CSTQUEST DIAGNOSTICSBASOPHILS0.5%01/07/2025 2:06 AM CST[facility] ABSOLUTE VTPQVQAAUZQ48879766 - 7800 cells/uL01/07/2025 2:06 AM CSTQUEST DIAGNOSTICSABSOLUTE JQILWBXMVBE8608902 - 3900 cells/uL01/07/2025 2:06 AM SLAB PULLER [facility] DIAGNOSTICSABSOLUTE POFRRPPSO177810 - 950 cells/uL01/07/2025 2:06 AM SLAB PULLER [facility] DIAGNOSTICSABSOLUTE PNVYFWCJWLE32490 - 500 cells/uL01/07/2025 2:06 AM SLAB PULLER [facility] DIAGNOSTICSABSOLUTE AEISMOXVU158 - 200 cells/uL01/07/2025 2:06 AM CSTQUEST DIAGNOSTICSSpecimen (Source)Anatomical Location / LateralityCollection Method / VolumeCollection TimeReceived TimeBloodBLOOD SPECIMEN / UnknownQuest Collect / Vinclex1001/06/2025 11:57 AM CST01/06/2025 11:58 AM SLAB PULLER Narrative Authorizing ProviderResult TypeResult StatusBridgejose Juliannaxiomara Pablo PAHEMATOLOGY Final ResultPerforming OrganizationAddressCity/State/ZIP CodePhone Number [facility] [address] [place] [address], [place] [phone] * MAGNESIUM (01/06/2025 11:57 AM SLAB PULLER)ComponentValueRef RangeTest MethodAnalysis TimePerformed AtPathologist SignatureMAGNESIUM2.01.5 - 2.5 mg/dL01/07/2025 5:02 AM CSTQUEST DIAGNOSTICSSpecimen (Source)Anatomical Location / Laterality Collection Method / VolumeCollection TimeReceived TimeBloodBLOOD SPECIMEN / UnknownQuest Collect / Atunxqo1601/06/2025 11:57 AM CST01/06/2025 11:58 AM SLAB PULLER Narrative Authorizing ProviderResult TypeResult StatusBridgejose Juliannaxiomara Pablo PACHEMISTRY Final ResultPerforming OrganizationAddressty/State/ZIP CodePhone Number [facility] [address] [place] [address], [place] [phone] * VITAMIN B12 (01/06/2025 11:57 AM SLAB PULLER)ComponentValueRef RangeTest Method Analysis TimePerformed AtPathologist SignatureVITAMIN [id number] - 1100 pg/mL 01/07/2025 4:00 AM CSTQUEST DIAGNOSTICSSpecimen (Source)Anatomical Location / LateralityCollection Method / VolumeCollection TimeReceived TimeBloodBLOOD SPECIMEN / UnknownQuest Collect / Fvfbxai6701/06/2025 11:57 AM CST01/06/2025 11:58 AM SLAB PULLER Narrative Authorizing ProviderResult TypeResult StatusBridget Julianna Pablo PACHEMISTRY Final ResultPerforming OrganizationAddressCity/State/ZIP CodePhone Number [facility] [address] [place] [address], * (ABNORMAL) COMP METABOLIC PANEL (01/06/2025 11:57 AM SLAB PULLER)ComponentValueRef RangeTest MethodAnalysis TimePerformed AtPathologist RusngifjgLSUCEB174561 - 146 mmol/L103/09/2024 5:02 AM CSTQUEST DIAGNOSTICSPOTASSIUM3.1(L)3.5 - 5.3 mmol/L103/09/2024 5:02 AM CSTQUEST YEQRUYQMXSKICBUYVAQ8753 - 110 mmol/L 01/07/2025 5:02 AM CSTQUEST DIAGNOSTICSCARBON HICWTKB0884 - 32 mmol/L 01/07/2025 5:02 AM CSTQUEST NJITDLJYOUQAWPNWES9943 - 99 mg/dL01/07/2025 5:02 AM CSTQUEST DIAGNOSTICSComment: ? Fasting reference interval HCCEIZM18.4(H)8.6 - 10.2 mg/dL01/07/2025 5:02 AM CSTQUEST DIAGNOSTICSCREATININE 1.03(H)0.50 - 0.99 mg/dL01/07/2025 5:02 AM CSTQUEST DIAGNOSTICSBUN/CREATININE QDJOW134 - 22 (calc)01/07/2025 5:02 AM CSTQUEST WDXYNTIFNUNTFBE38> OR = 60 mL/min/1.46z88501/07/2025 5:02 AM CSTQUEST DIAGNOSTICSALBUMIN4.73.6 - 5.1 g/dL 01/07/2025 5:02 AM CSTQUEST DIAGNOSTICSPROTEIN, TOTAL7.06.1 - 8.1 g/dL01/07/2025 5:02 AM CSTQUEST DIAGNOSTICSBILIRUBIN, TOTAL0.50.2 - 1.2 mg/dL01/07/2025 5:02 AM CSTQUEST DIAGNOSTICSALKALINE ERYPCQZMSMU9033 - 125 U/L103/09/2024 5:02 AM SLAB PULLER [facility] SQLBPLBKTRDEZX188 - 29 U/L103/09/2024 5:02 AM CSTQUEST SJNELQDOYGNOHE9973 - 35 U/L103/09/2024 5:02 AM CSTQUEST DIAGNOSTICSUREA NITROGEN (BUN)197 - 25 mg/dL 01/07/2025 5:02 AM CSTQUEST DIAGNOSTICSGLOBULIN2.31.9 - 3.7 g/dL (calc) 01/07/2025 5:02 AM CSTQUEST DIAGNOSTICSALBUMIN/GLOBULIN RATIO2.01.0 - 2.5 (calc) 01/07/2025 5:02 AM CSTQUEST DIAGNOSTICSSpecimen (Source)Anatomical Location / LateralityCollection Method / VolumeCollection TimeReceived TimeBloodBLOOD SPECIMEN / UnknownQuest Collect / Abzomav7901/06/2025 11:57 AM CST01/06/2025 11:58 AM SLAB PULLER Narrative Authorizing ProviderResult TypeResult StatusBridget Julianna Pablo PACHEMISTRY Final ResultPerforming OrganizationAddressCity/State/ZIP CodePhone Number [employer] [place] [address] [place] [address], * (ABNORMAL) LIPID PANEL W REFLEX MEASURED LDL (02/25/2024 12:14 PM SLAB PULLER) ComponentValueRef RangeTest MethodAnalysis TimePerformed AtPathologist SignatureCHOLESTEROL, ZXCON442<200 mg/dLQuest 3D DataeHDL LNUACRZQZVK54(L)> OR = 50 mg/dLQuest Swifto IcdeOXRLPNHCCJJUP330<150 mg/dLQuest Swifto [facility] SpringseLDL-ZRLPVSTYKDF87tx/dL (calc)UrbanBound DaleComment: Reference range: <100 Desirable range <100 mg/dL for primary prevention; <70 mg/dL for patients with CHD or diabetic patients with > or = 2 CHD risk factors. LDL-C is now calculated using the Daniel calculation, which is a validated novel method providing better accuracy than the Friedewald equation in the estimation of LDL-C. Luis ABRAHAM et al. HADLEY. 2013;310(19): 5341-0115 (http://education.Friendster/faq/RZS938) CHOL/HDLC RATIO3.5<5.0 (calc)[facility] Jean-Paul HDL CUDEJZMQLOU244 <130 mg/dL (calc)[facility]-Luis Fernando DuaneeComment: For patients with diabetes plus 1 major ASCVD risk factor, treating to a non-HDL-C goal of <100 mg/dL (LDL-C of <70 mg/dL) is considered a therapeutic option. Specimen (Source)Anatomical Location / LateralityCollection Method / Volume Collection TimeReceived TimeBloodBLOOD SPECIMEN / Efvraka4202/25/2024 12:14 PM SLAB PULLER 02/25/2024 12:15 PM SLAB PULLER Narrative Authorizing ProviderResult TypeResult StatusBridget Julianna Pablo PACHEMISTRY Final ResultPerforming OrganizationAddressCity/State/ZIP CodePhone Number [employer] [facility] [address] [place] [address], [facility] [address] [place] [address] * HIV (08/26/2009 6:59 PM CDT)ComponentValueRef RangeTest MethodAnalysis Time Performed AtPathologist SignatureANTI HIV 1/2Non-reactiveABBOOLIVIA HOSPITAL AND CLINICSpecimen (Source)Anatomical Location / LateralityCollection Method / VolumeCollection TimeReceived TimeBlood specimen (specimen)BLOOD SPECIMEN / Ewhvfcn3008/26/2009 6:59 PM CDT08/26/2009 6:45 PM CDT Narrative Authorizing ProviderResult TypeResult StatusNicole Florence López NPSEND OUTSFinal ResultPerforming OrganizationAddressCity/State/ZIP CodePhone Number [facility] [place]NAL [place]IP [phone] [address] from Last 3 Months or Most Recently Relevant to Health Maintenance Insurance Advance Directives * Full Code (Latest Code Status on File) Date ActivatedDate InactivatedComments06/07/2007 4:39 AM4 2:32 PM * Full Code Date ActivatedDate InactivatedComments06/06/2007 9:00 AM4 4:39 AM Care Teams Team MemberRelationshipSpecialtyStart DateEnd Date Leola Pablo PA [address] [place] [address] PCP - GeneralPhysician Assistant04/01/19 Concha Fermin MD [address] [place] [address] OB/GYNObstetrics and Zhujpibrak37/13/12
[2025-01-27 16:46] LABS: Anion Gap 13 mEq/L (7-15); Blood Urea Nitrogen* 17 mg/dL (5-24); Calcium* 9.4 mg/dL (8.4-10.6); Carbon Dioxide* 24 mmol/L (20-32); Creatinine* 0.8 mg/dL (0.5-1.5); Estimated Glomerular Filt Rate 92 ml/min; Glucose* 95 mg/dL (60-115)
== END 2025-01-27 18:21 | disposition home or self-care (01) ==
PROVIDERS: Emergency Provider Emergency Medicine; PCP Physician Assistant Medical
DX: S00.83XA Contusion of other part of head, initial encounter (principal); S06.0X1A Concussion with loss of consciousness of 30 minutes or less, initial encounter; R55 Syncope and collapse; R51.9 Headache, unspecified; W18.39XA Other fall on same level, initial encounter
CPT/HCPCS: 36415; 70450; 70486; 80048; 85025; 93005; 99283; 99284; 99285